=== PATIENT | male | born 1980 | race Caucasian/White ===

== ENCOUNTER → 2018-11-21 | Outpatient (CLI) | payer OTHER | LOC: COL.RAD 09:15 | DX: K44.9 Diaphragmatic hernia without obstruction or gangrene (principal); K21.9 Gastro-esophageal reflux disease without esophagitis ==

== ENCOUNTER 2018-11-27 07:31 | Day surgery (SDC) | payer OTHER ==
[~2018-11-27] VITALS: Ht 185.4 cm; Wt 107.9 kg
[2018-11-27] VITALS (10 sets, daily range): BP systolic 125–139; BP diastolic 65–87; PULSE 57–82; TEMP 98–98.4
[2018-11-27] MEDS ORDERED: PROTONIX20 MG PO (07:59)
[2018-11-27] MEDS ORDERED: TYLENOL 500MG500 MG PO (08:01)
[2018-11-27] MEDS ORDERED: MOTRIN 800800 MG/TAB PO (08:01)
[2018-11-27] MEDS ORDERED: VIAGRA100 M1 PO (08:02)
[2018-11-27] MEDS ORDERED: AMBIEN CR 12.12.5 MG PO (08:05)
[2018-11-27] MEDS ORDERED: WELLBUTRIN XL150 MG PO (08:06)
[2018-11-27] MEDS ORDERED: ATARAX 25MG25 MG/TAB PO (08:07)
--- NOTE | 2018-11-27 13:00 | NUR ---
Patient is back to the floor from surgery. Continues to have increased pain, no more nausea. Explained that he needs to get up and walk once he is more awake. Lapsites to abdomen are well approximated. No other changes at this time. Call light within reach.
--- NOTE | 2018-11-27 18:30 | NUR ---
Patient has been up walking several times in the hallways. No complaints of nausea. He continues to have pain in his upper abdome. Explained that can happen and could be due to gas pain. He is tolerating clear liquids. Explained to eat the minimal amount until he is passing flatus, he is not following this very well. No other changes at this time. Call light within reach.
[2018-11-28] VITALS: BP 140/58; PULSE 73; TEMP 98.4
[2018-11-28 04:00] VITALS: BP 133/65; PULSE 76; TEMP 98.6
--- NOTE | 2018-11-28 06:01 | NUR ---
PT HAS HAD A FAIRLY RESTFUL NIGHT. PT AMB IN HALLS. PAIN AND NAUSEA HAS SUBSIDED.
[2018-11-28 07:24] VITALS: BP 140/80; PULSE 56; TEMP 98.1
--- NOTE | 2018-11-28 09:00 | NUR ---
Patient alert and oriented, answers questions appropriately. See assessment. Abdomen soft, non tender, non distended. Bowel sounds active x4 quads. +Flatus. Lap sites with edges well approximated, no drainage or redness noted. Post op exercises reviewed. C/o RUQ pain 10/16. No other c/o at this time.
--- NOTE | 2018-11-28 09:26 | NUR ---
TIFFANIE met with the patient to discuss discharge plan. The patient lives in [place] with his , Lisa. He reports independence with ADLs and does not use any DME. The patient receives primary care at the [facility] on [address] and he receives his medications from [facility] or the [facility]. He reports no difficulties obtaining his meds. The patient does not have advanced directives and he was not interested in completing them at this time. The patient plans to return home with his upon discharge. No additional needs at this time.
--- NOTE | 2018-11-28 11:11 | NUR ---
Discharge instructions reviewed with patient and spouse, verbalized understanding. Discharged ambulatory to auto/home with spouse at 1040.
== END 2018-11-28 10:40 | disposition home or self-care (01) ==
LOC: SDCO 07:31 → SURG 12:51 → SDCO 11-28 10:40
DX: K21.0 Gastro-esophageal reflux disease with esophagitis (principal); K44.9 Diaphragmatic hernia without obstruction or gangrene; K42.9 Umbilical hernia without obstruction or gangrene; Z79.899 Other long term (current) drug therapy; F17.210 Nicotine dependence, cigarettes, uncomplicated
CPT/HCPCS: OP; C1781; J0690; J1100; J1170; J1885; J2405; J2550; J2704; J2710; J3010; J7120